=== PATIENT | male | born 1995 | race Caucasian/White ===

== ENCOUNTER 2016-04-30 20:38 | Emergency (ER) | payer OTHER ==
[~2016-04-30] VITALS: Ht 162.6 cm; Wt 65.4 kg
[2016-04-30] MEDS ORDERED: NORCO 5/3251 TABLET PO (22:43)
[2016-04-30 22:52] VITALS: BP 121/71
== END 2016-04-30 22:53 | disposition home or self-care (01) ==
LOC: EME 20:38
DX: S90.212A Contusion of left great toe with damage to nail, initial encounter (principal); S97.112A Crushing injury of left great toe, initial encounter; W20.8XXA Other cause of strike by thrown, projected or falling object, initial encounter; Z23 Encounter for immunization
CPT/HCPCS: 73660; 99281; 99284; S0020